=== PATIENT | female | born 1980 | race Caucasian/White ===

== ENCOUNTER 2020-01-18 20:07 | Emergency (ER) | payer OTHER, MEDICAID ==
[~2020-01-18] VITALS: Ht 157.5 cm; Wt 72.3 kg
[2020-01-18] MEDS ORDERED: PROCHLORPERAZINE 5 MG/ML, 2ML ONE (20:42)
[2020-01-18] MEDS ORDERED: KETOROLAC 30 MG/1 ML ONE (20:42)
[2020-01-18] MEDS ORDERED: DIPHENHYDRAMINE 50 MG/ML, 1ML ONE (20:42)
[2020-01-18] MEDS ORDERED: KETOROLAC 30 MG/1 ML IVPush ONE (21:00)
[2020-01-18] MEDS ORDERED: PROCHLORPERAZINE 5 MG/ML, 2ML IVPush ONE (21:00)
[2020-01-18] MEDS ORDERED: SODIUM CHLORIDE FLUSH 10ML SYR IVF ONE (21:00)
[2020-01-18] MEDS ORDERED: DIPHENHYDRAMINE 50 MG/ML, 1ML IVPush ONE (21:00)
[2020-01-18] MEDS ORDERED: SODIUM CHLORIDE 0.9% 1,000ML IVBOLUS ONE (21:00)
[2020-01-18 21:01] VITALS: BP 153/108
[2020-01-18 21:02] LABS: BASOPHILS # (AUTO) 0.01 x10^3/uL (0-0.1); BASOPHILS % (AUTO) 0 % (0-1); EOSINOPHILS % (AUTO) 2 % (1-7); LYMPHOCYTES # (AUTO) 1.67 x10^3/uL (1-3.4); LYMPHOCYTES % (AUTO) 34 % (22-44); MD NO; MEAN CORPUSCULAR HEMOGLOBIN 32.3 pg (27.0-34.8); MEAN CORPUSCULAR HGB CONC 33.5 g/dL (32.4-35.8); MEAN CORPUSCULAR VOLUME 96.4 fL (80-100); MEAN PLATELET VOLUME 7.6 fL (7.4-10.4); MONOCYTES # (AUTO) 0.23 x10^3/uL (0.2-0.8); MONOCYTES % (AUTO) 5 % (2-9); NEUTROPHILS # (AUTO) 2.97 x10^3/uL (1.8-6.8); NEUTROPHILS % (AUTO) 60 % (42-75); PLATELET COUNT 278 x10^3/uL (130-400); RED CELL DISTRIBUTION WIDTH 12.9 % (9.6-15.2)
--- NOTE | 2020-01-18 21:02 | NUR ---
PT AMBULTED TO RESTROOM WITH STEADY GAIT TO PROVIDE URINE SAMPLE. UA COLLECTED AND SENT TO LAB. PIV PLACED, LABS DRAWN AND SENT TO LAB WITH LAB STICKERS. MEDS ADMIN PER SEP. IVF RUNNING. PT CONNECTED TO MONITORING. CALL LIGHT IN REACH.
[2020-01-18 21:09] LABS: MICROSCOPIC NOT IND
[2020-01-18 21:11] LABS: ALBUMIN 3.8 g/dL (3.4-5.0); ANION GAP 6 mmol/L (5-15); CALCIUM 8.9 mg/dL (8.5-10.1); CHLORIDE 109 mmol/L (98-107); CREATININE 0.65 mg/dL (0.55-1.02)
--- NOTE | 2020-01-18 21:32 | NUR ---
ALL RESULTS ARE BACK AT THIS TIME. CHART UP FOR RECHECK.
== END 2020-01-18 22:18 | disposition home or self-care (01) ==
LOC: ED 21:52
DX: R11.2 Nausea with vomiting, unspecified (principal); R51 Headache; R53.83 Other fatigue
CPT/HCPCS: 36415; 80048; 81003; 82040; 84703; 85025; 96361; 96374; 96375; 99284; J0780; J1200; J1885; J7030; 96372

== ENCOUNTER 2020-08-13 11:16 | Emergency (ER) | payer OTHER, MEDICAID ==
[~2020-08-13] VITALS: Ht 160 cm; Wt 74.3 kg
[2020-08-13] MEDS ORDERED: KETOROLAC 30 MG/1 ML ONE (11:48)
[2020-08-13] MEDS ORDERED: ONDANSETRON 2MG/ML, 2ML ONE (11:48)
[2020-08-13] MEDS ORDERED: ONDANSETRON 2MG/ML, 2ML IVPush ONE (12:00)
[2020-08-13] MEDS ORDERED: SODIUM CHLORIDE 0.9% 1,000ML IVBOLUS ONE (12:00)
[2020-08-13] MEDS ORDERED: KETOROLAC 30 MG/1 ML IVPush ONE (12:00)
--- NOTE | 2020-08-13 12:06 | NUR ---
PIV PLACED. MEDS ADMIN, IVF RUNNING. WARM BLANKET PROVIDED.
--- NOTE | 2020-08-13 12:23 | NUR ---
PROVIDER AT BEDSIDE TO UPDATE PT ON POC.
[2020-08-13 12:36] VITALS: BP 137/91
== END 2020-08-13 12:51 | disposition home or self-care (01) ==
LOC: ED 11:25
DX: G43.009 Migraine without aura, not intractable, without status migrainosus (principal); H53.149 Visual discomfort, unspecified
CPT/HCPCS: 96361; 96374; 96375; 99284; J1885; J2405; J7030

== ENCOUNTER 2020-10-03 09:09 | Emergency (ER) | payer OTHER, MEDICAID ==
[~2020-10-03] VITALS: Ht 157.5 cm; Wt 74.9 kg
--- NOTE | 2020-10-03 09:16 | NUR ---
triage: patient arrives with neck pain that began last night after she fell at a restaurant.
--- NOTE | 2020-10-03 09:26 | NUR ---
PT C/O LOWER BACK AND NECK PAIN AFTER GROUND LEVEL FALL YESTERDAY AT 1900. PT DENIES LOC, STATES SHE SLIPPED ON SOMETHING. PAIN 8/10 AND GETTING WORSE SINCE YESTERDAY. PT DENIES NUMBNESS/TINGLING IN EXT'S. NAUSEA STARTED THIS AM, NO VOMITING. PT DENIES PAIN ANYWHERE ELSE.
[2020-10-03 10:43] VITALS: BP 138/100
--- NOTE | 2020-10-03 10:52 | NUR ---
PT REC'VD DISCHARGE INSTRUCTIONS AND EDUCATION. PT HAD NO QUESTIONS. PT AMBULATED TO DC AREA, STEADY GAIT.
== END 2020-10-03 10:54 | disposition home or self-care (01) ==
LOC: ED 10:24
DX: S16.1XXA Strain of muscle, fascia and tendon at neck level, initial encounter (principal); M54.5 Low back pain; X58.XXXA Exposure to other specified factors, initial encounter; Y93.89 Activity, other specified; Y92.89 Other specified places as the place of occurrence of the external cause; Y99.8 Other external cause status
CPT/HCPCS: 72050; 72220; 99284